=== PATIENT | male | born 1955 | race African-American/Black ===

== ENCOUNTER 2023-12-05 16:48 | Emergency (ER) | payer SELFPAY ==
[~2023-12-05] VITALS: Ht 172.7 cm; Wt 70.0 kg
[2023-12-05 16:50] VITALS: BP 153/57; PULSE 98; TEMP 98.5; O2SAT 98
[2023-12-05] MEDS: IBUPROFEN 600MG TABLET PO ONE (17:00)
[2023-12-05] MEDS ORDERED: IBUP-2029 MT (18:33)
[2023-12-05 18:35] VITALS: RESP 16
== END 2023-12-05 18:53 | disposition home or self-care (01) ==
LOC: ER 16:48
DX: M79.605 Pain in left leg (principal); M25.572 Pain in left ankle and joints of left foot; E11.9 Type 2 diabetes mellitus without complications
CPT/HCPCS: 73590; 73610; 99284